=== PATIENT | female | born 1965 | race Caucasian/White ===

== ENCOUNTER → 2020-04-01 08:55 | Outpatient (CLI) | payer OTHER, SELFPAY ==
--- NOTE | ~2020-04-01 | XR_ITS ---
EXAMINATION: XR hip RT min 2V DATE: 04/01/2020 09:26 INDICATION: Right hip pain. TECHNIQUE: 2 views of right hip were obtained. COMPARISON: None. FINDINGS: Bone alignment is normal. No fracture. There is moderate right hip osteoarthritis. IMPRESSION: 1. Moderate right hip osteoarthritis. Reviewed, dictated and finalized at location A.
== END ==
DX: M25.551 Pain in right hip (principal); M16.11 Unilateral primary osteoarthritis, right hip
CPT/HCPCS: 73502

== ENCOUNTER → 2020-04-01 09:01 | Outpatient (CLI) | payer OTHER, SELFPAY ==
--- NOTE | ~2020-04-01 | XR_ITS ---
EXAMINATION: XR abdomen/kub 1V INDICATION: Calculus of kidney TECHNIQUE: Supine views of the abdomen were obtained on 2 radiographs. COMPARISON: None FINDINGS: A 6 mm calcification projects over the right kidney lower pole. Bowel contents project over the left kidney limiting sensitivity for renal stones however none are seen. No stones are identifie d along the expected courses of the ureter or within the bladder. The bowel gas pattern is normal. Th ere is mild lumbar spondylosis and moderate bilateral hip osteoarthritis. IMPRESSION: 1. Right nephrolithiasis. Reviewed, dictated and finalized at location A. IMPRESSION: 1. Right nephrolithiasis.
== END ==
PROVIDERS: Visit Provider Urology
DX: N20.0 Calculus of kidney (principal)
CPT/HCPCS: 74018

== ENCOUNTER 2024-02-14 14:53 | Outpatient (CLI) | payer OTHER, SELFPAY ==
--- NOTE | ~2024-02-14 | XR_ITS ---
EXAMINATION: XR abdomen/kub 1V DATE: 02/14/2024 15:10 INDICATION: Calculus of kidney, right-sided. TECHNIQUE: A supine view of the abdomen on 2 radiographs was obtained. COMPARISON: Abdomen radiographs 04/01/2020 FINDINGS: There are no dilated loops of bowel. There is an 8 mm stone in right kidney. There is a tot al left hip arthroplasty in near-anatomic alignment. There are phleboliths in the pelvis. IMPRESSION: 1. 8 mm stone in right kidney. Reviewed, dictated and finalized at location A.
== END 2024-02-14 14:54 | disposition home or self-care (01) ==
PROVIDERS: Visit Provider Urology
DX: N20.0 Calculus of kidney (principal)
CPT/HCPCS: 74018

== ENCOUNTER 2024-02-26 08:26 | Outpatient (CLI) | payer OTHER, SELFPAY ==
--- NOTE | 2024-02-26 08:44 | ECG_ITS ---
Test Date: 2024-02-26 09:03:47 Measurements Intervals [place] Rate: 98 P: 70 MT: 144 QRS: -55 QRSD: 86 T: 38 QT: 353 QTc: 452 Interpretive Statements SINUS RHYTHM LEFT AXIS DEVIATION LEFT ATRIAL ENLARGEMENT INCOMPLETE RIGHT BUNDLE BRANCH BLOCK DELAYED PRECORDIAL R/S TRANSITION INFERIOR INFARCT, AGE INDETERMINATE BASELINE ARTIFACT- II, III, AVF ABNORMAL ECG No previous ECG available for comparison Electronically Signed On 02-26-2024 10:40:51 CDT by Naresh Garces D.O.
[2024-02-26 09:17] LABS: Prothrombin Time 13.3 Seconds (11.1-14.7)
[2024-02-26 09:18] LABS: Partial Thromboplastin Time 27.3 Seconds (22.3-36.8)
== END 2024-02-26 08:27 | disposition home or self-care (01) ==
PROVIDERS: Visit Provider Urology
DX: N20.0 Calculus of kidney (principal); I10 Essential (primary) hypertension; Z01.818 Encounter for other preprocedural examination
CPT/HCPCS: 36415; 85610; 85730; 87086; 93005

== ENCOUNTER 2024-03-03 00:47 | Day surgery (SDC) | payer OTHER, SELFPAY ==
[2024-02-24 14:07] VITALS: BMI 43.9
--- NOTE | 2024-02-24 14:28 | SUR.PREOP ---
Report to the Outpatient Waiting Room, entrance under the green pavilion located off [facility], at time 0730 on date 02/24/24. Planned Procedure Time: 0930.? Time changes happen often and if your time is changed the preop area will call you the afternoon before. - You and your visitor will be asked to self-screen and do not enter if you have any COVID symptoms. Please call surgeon if you need to reschedule. - A mask is optional within the hospital at this time. Patients may have clear liquids (water, carbonated beverages, clear teas, apple juice) until 3 hours prior to surgery with a maximum of 20 ounces. - No food from midnight until time of surgery and no smoking - Infants may have breast milk until 4 hours before surgery, infant formula 6 hours prior to surgery. - Children will be allowed to drink immediately following surgery.? If applicable, please bring a bottle or sippy cup to assist with drinking. Juice, water, soda, and popsicles are readily available.? For infants on formula, please bring formula the day of surgery.? Pacifiers are allowed. Take only the following medications with a SIP of water on the morning of surgery: N/A DO NOT STOP ANY OF YOUR OTHER PRESCRIPTION MEDICATIONS PRIOR TO SURGERY EXCEPT THE FOLLOWING Medications to discontinue per physician: Vitamins-per Anesthesia 3 days, Meloxicam- clarify with Dr. Ambriz Date to take last dose: Vitamins 02/29/24 Please no make-up, nail hebrew, hairspray, perfume, deodorant, or body powder the day of surgery.? No jewelry (including any body piercings) or valuables the day of surgery, leave them at home.? Please take a shower or bath the night before, or the morning of, surgery with an antibacterial soap.? Wear comfortable, loose fitting clothing.? Children are encouraged to wear pajamas. - Jewelry must be removed prior to entering the operating room.? Rings and piercings that are not removed may be cut off. - The hospital will not accept responsibility for valuables.? - Please leave all valuables, including medications, at home the day of surgery. If you are going home after surgery, a licensed roll off driver must drive you home.? - NO public transportation without another adult if you receive anesthesia. - We recommend that an adult stay with you for 24 hours following discharge. - We also recommend that you do not drive, make important decision, drink alcoholic beverages, or take any drugs that were not prescribed by your health care provider for at least 24 hours after your discharge time. For Pediatric surgeries, we recommend two adults accompany the child home. Follow any additional instructions given to you from your surgeon. Telephone instructions given to patient and asked if any additional questions and then verbalized understanding. Patient advised to call surgeon office or pre surgery nurse liaison [phone] if any additional questions.
[2024-03-03] VITALS (7 sets, daily range): BP systolic 122–143; BP diastolic 73–86; PULSE 80–98; RESP 12–18; TEMP 36.3–36.4; O2SAT 98–100
--- NOTE | ~2024-03-03 | XR_ITS ---
EXAMINATION: XR abdomen/kub 1V DATE: 03/03/2024 06:45 INDICATION: Right kidney stone. TECHNIQUE: A supine view of the abdomen on 2 radiographs was obtained. COMPARISON: Abdomen radiographs 02/14/2024 FINDINGS: There are no dilated loops of bowel. There is an 8 mm stone in right kidney. There is a phl ebolith in right pelvis. There is a total left hip arthroplasty. IMPRESSION: 1. 8 mm stone in right kidney. Reviewed, dictated and finalized at location A.
--- NOTE | 2024-03-03 07:25 | WPDHPUPDATE1 ---
History and Physical Update Update Date/Time: 03/03/24 07:25 History and Physical has been reviewed, including an updated exam of the patient. There are NO changes in the patient's condition. Risks, benefits, and alternatives have been discussed and questions answered. Patient agrees to proceed with procedure. Proceed with right renal eswl
--- NOTE | 2024-03-03 07:47 | WPDANESEPPF ---
Anes - Initial Pre Proc Eval Procedure: Operation Date: 03/03/24 08:30 Proposed Procedures p Right Extracorporeal Shock Wave Lithotripsy - Fermin Ambriz MD Date/Time: 03/03/24 07:47 Surgeon: Fermin Ambriz MD Pre Op Diagnosis: right renal stone Patient Data Age: 58 Gender: F Height: 1.46 m Weight: 93.6 kg Allergies Allergy/AdvReac Type Severity Reaction Status Date / Time Penicillins Allergy Mild Rash Verified 02/24/24 14:05 Home Medications Medication Instructions Recorded Confirmed Type Adults Multivitamin See Rx Instructions .Route .COMPLEX 02/24/24 02/24/24 History Fish Oil See Rx Instructions .Route .COMPLEX 02/24/24 02/24/24 History atorvastatin 20 mg tablet 20 mg PO DAILY 02/24/24 02/24/24 History losartan 100 mg tablet 100 mg PO DAILY 02/24/24 02/24/24 History meloxicam 15 mg tablet 15 mg PO DAILY 02/24/24 02/24/24 History Patient hx anesthesia problems: none Family hx anesthesia problems: none Results Review: All pre-operative results and documents have been reviewed as part of the pre-operative evaluation. [facility] Past Medical History Medical History (Updated 03/03/24 @ 07:48 by Amado Rooney DO) Hyperlipidemia Hypertension Osteoarthritis PONV (postoperative nausea and vomiting) Social History Social History Smoking status: Never smoker Alcohol intake: current Alcohol use details: 1-2x times per month Substance use: never Living arrangements: with family Spiritual care concerns: No Anes - Eval Final PreProcedure Day of Procedure 03/03/24 07:47 Patient weight: morbidly obese Heart: regular rate and rhythm Lungs: clear to auscultation Airway: Mallampati scale class II Neurological: alert and oriented Last oral intake: >/= 8 hours ASA classification: III Emergent: no Anesthetic plan: proceed Anesthesia type and monitoring: general LMA and standard monitoring Results Review: All pre-operative results and documents have been reviewed as part of the pre-operative evaluation. Informed Consent: The patient's anesthetic plan and its attendant risks and benefits were discussed with the patient/family/POA. Questions were solicited and answers provided to the satisfaction of the patient/family/POA.
[2024-03-03] MEDS: LACTATED RINGERS 1,000 ML 30 ML IV CONT ×2 (08:27→09:15)
[2024-03-03] MEDS: ceFAZolin 2 GM/D5W 50 ML 2 GM/50 ML BAG IVPB (08:27)
--- NOTE | 2024-03-03 09:07 | W.PM.PROC2 ---
Procedure Note - Detailed Date of Procedure 03/03/24 Pre-op Diagnosis right renal stone Post-op Diagnosis Same Procedure Performed Lithotripsy of right renal calculus 8-9 mm Surgeon Fermin Ambriz MD Anesthesia General Description of Procedure Patient was taken the operative suite correctly identified. Once anesthesia was obtained the stone was localized in both planes. Two thousand five hundred shocks given the stone. The tell the amount of fragmentation at this point time. She was taken recovery stable condition. She will follow-up in 7-10 days with KUB. If there is still significant stone burden I will recommend ureteroscopy with laser. This completes dictation. Please send a copy of op note to my office Estimated Blood Loss 0 Drains No Packing No Pathology None sent Complications No immediate complications Condition Stable Disposition PACU
[2024-03-03] MEDS: oxyCODONE HCL (*CRX) 5 MG TAB IR PO (10:15)
== END 2024-03-03 10:52 | disposition home or self-care (01) ==
PROVIDERS: Visit Provider Urology
PROC: (CPT 50590; principal; 2024-03-03 08:30)
DX: N20.0 Calculus of kidney (principal); I10 Essential (primary) hypertension; E78.5 Hyperlipidemia, unspecified; E66.01 Morbid (severe) obesity due to excess calories; Z68.41 Body mass index [BMI] 40.0-44.9, adult
CPT/HCPCS: 50590; 36415; 74018; 85610; 85730; 87086; 93005; A9270; J0690; J1100; J2250; J2405; J2704; J3010; J7120

== ENCOUNTER 2024-03-14 17:15 | Outpatient (CLI) | payer OTHER, SELFPAY ==
--- NOTE | ~2024-03-14 | XR_ITS ---
Supine and upright views of the abdomen Clinical history: Right renal stone COMPARISON: 03/03/2024 Findings: Bowel gas pattern is nonspecific. No evidence for obstruction or free air. 8 mm right renal stone is unchanged. Left hip arthroplasty noted. There is advanced degenerative change of the right hip joint. Impression: Stable 8 mm right renal stone. Reviewed, dictated and finalized at [facility]. Impression: Stable 8 mm right renal stone.
== END 2024-03-14 17:16 | disposition home or self-care (01) ==
LOC: ANHIMG 17:18
PROVIDERS: Visit Provider Urology
DX: N20.0 Calculus of kidney (principal)
CPT/HCPCS: 74018